=== PATIENT | male | born 2000 | race Caucasian/White ===

== ENCOUNTER 2020-07-14 06:13 | Day surgery (SDC) | payer OTHER, SELFPAY ==
[~2020-07-14] VITALS: Ht 170.2 cm; Wt 72.6 kg
[2020-07-14] MEDS ORDERED: NS IRRIG SOLN 1000 ML IR ONE (07:34)
[2020-07-14] MEDS ORDERED: MUPIROCIN 2% TOPICAL OINTMENT 22 GM TP ONE (07:34)
[2020-07-14] MEDS ORDERED: SUGAMMADEX SODIUM 200 MG/2 ML VIAL IV ONE (07:34)
[2020-07-14] MEDS ORDERED: ROCURONIUM BROMIDE 10 MG/ML (ZEMURON) IV ONE (07:34)
[2020-07-14] MEDS ORDERED: LIDOCAINE/EPI 1% 1:100000 20 ML VIAL INJ ONE (07:34)
[2020-07-14] MEDS ORDERED: fentaNYL CITRATE 250 MCG/5 ML AMP IV ONE (07:34)
[2020-07-14] MEDS ORDERED: EPINEPHrine JECT 0.1 MG/ML SYR IVP ONE (07:34)
[2020-07-14] MEDS ORDERED: LIDOCAINE 2%, 20 ML MDV INJ ONE (07:34)
[2020-07-14] MEDS ORDERED: LR 1,000 ML IV.SOLN IV ONE (07:34)
[2020-07-14] MEDS ORDERED: DEXAMETHASONE SOD PHOSPHATE 4 MG/ML VIAL IVP ONE (07:34)
[2020-07-14] MEDS ORDERED: ISOFLURANE 15 MIN GAS INH ONE (07:34)
[2020-07-14] MEDS ORDERED: PROPOFOL 200MG/ 20ML VIAL (DIPRIVAN) IV ONE (07:34)
[2020-07-14] MEDS ORDERED: NS 1000 ML IV.SOLN IV ONE (07:34)
[2020-07-14] MEDS ORDERED: LEVOFLOXACIN 500 MG/D5W 100 ML PIGGYBACK IV ONE (07:34)
[2020-07-14] MEDS ORDERED: WATER FOR IRRIGATION,STERILE 1,000 ML IRRIG.SOLN IR ONE (07:34)
[2020-07-14] MEDS ORDERED: ONDANSETRON HCL 4 MG/2 ML VIAL IVP ONE (07:34)
[2020-07-14] MEDS ORDERED: OXYMETAZOLINE HCL 0.05% NASAL SPRAY NS ONE (07:34)
[2020-07-14] MEDS ORDERED: KETOROLAC TROMETHAMINE 30 MG VIAL IVP ONE (07:34)
[2020-07-14] MEDS ORDERED: BACITRACIN ZINC 15 GM TOPICAL OINTMENT TP ONE (07:34)
[2020-07-14] MEDS ORDERED: MIDAZOLAM HCL 5 MG/5 ML VIAL IVP ONE (07:34)
[2020-07-14] MEDS ORDERED: LR 1,000 ML IV SCH (08:30)
[2020-07-14] MEDS ORDERED: METOCLOPRAMIDE HCL 10 MG/2 ML VIAL IVP PRN (08:30)
[2020-07-14] MEDS ORDERED: ONDANSETRON HCL 4 MG/2 ML VIAL IVP PRN (08:30)
[2020-07-14] MEDS ORDERED: HYDROmorphone 1 MG INJ. 1 MG/ML AMPUL IVP PRN ×2 (08:30)
[2020-07-14] MEDS ORDERED: MEPERIDINE HCL/PF 25 MG/ML DISP.SYRIN IVP PRN (08:30)
[2020-07-14] MEDS ORDERED: MIDAZOLAM HCL 2 MG/2 ML VIAL (VERSED) IVP PRN (08:30)
[2020-07-14 11:50] VITALS: BP_SYST 119
== END 2020-07-14 13:00 | disposition home or self-care (01) ==
LOC: SDS 06:13 → SMU 06:56 → EDSEX 07:30 → SDS 13:00
PROVIDERS: ATTEND Otolaryngology
DX: J34.2 Deviated nasal septum (principal); D38.5 Neoplasm of uncertain behavior of other respiratory organs; J30.1 Allergic rhinitis due to pollen; H68.101 Unspecified obstruction of Eustachian tube, right ear; J32.9 Chronic sinusitis, unspecified; H91.92 Unspecified hearing loss, left ear; Z79.899 Other long term (current) drug therapy; Z20.828 Contact with and (suspected) exposure to other viral communicable diseases
CPT/HCPCS: 30140; 30520; 31276; 31298; 42831; 87070; 87075; 87101; 88305; 88311; C1726; C9399; J0171; J1100; J1885; J1956; J2001; J2250; J2405; J2704; J3010; J7030; J7120; U0003; 88304